=== PATIENT | male | born 1965 ===

== ENCOUNTER 2024-12-04 07:30 | Inpatient (IN) | payer OTHER ==
[~2024-12-04] VITALS: Ht 182.9 cm; Wt 84.7 kg
[2024-12-10] MEDS ORDERED: NO HOME MEDS (13:25)
[2024-12-11] VITALS (19 sets, daily range): BP systolic 126–167; BP diastolic 48–95; PULSE 76–101; RESP 11–21; TEMP 96.4–98.3; O2SAT 91–100
[2024-12-11] MEDS: clindamycin-Cleocin 900mg/D5W 50 ML IV ONE (05:30)
[2024-12-11] MEDS: tranexamic acid 1gm/0.7% sal. 100 ML IV ONE (05:30)
[2024-12-11] MEDS: famotidine 20mg tablet PO ONE (10:06)
[2024-12-11] MEDS: VANCOMYCIN/H2O 1.5g/300mL PB 300 ML IV ONE (10:07)
[2024-12-11] MEDS: ringers solution, lacted 1,000 ML IV SCH ×2 (10:07→19:31)
[2024-12-11] MEDS ORDERED: morphine 2 MG/ML inj. syringe IV PRN (10:45)
[2024-12-11] MEDS ORDERED: proCHLORperazine 10 MG/2 ml inj IV PRN (10:45)
[2024-12-11] MEDS ORDERED: labetalol 20mg/4ml (5mg/ml) syringe IV PRN (10:45)
[2024-12-11] MEDS ORDERED: morphine 4 MG/ML inj SYRINge IV PRN (10:45)
[2024-12-11] MEDS ORDERED: meperidine/PF 25mg/ml syringe IV PRN ×3 (10:45)
[2024-12-11] MEDS ORDERED: enalaprilat 1.25mg/ml 2ml vial IV PRN (10:45)
[2024-12-11] MEDS ORDERED: fentaNYL/PF 50MCG/1 ML 2ML syringe ONE (12:50)
[2024-12-11] MEDS ORDERED: MIDAZolam 1mg/ml 10ml vial ONE (12:50)
[2024-12-11] MEDS ORDERED: sevoflurane 250ml liquid IH ONE (12:52)
[2024-12-11] MEDS ORDERED: LIDOcaine 1%/PF 5ML 10 MG/ML VIAL ONE (13:20)
[2024-12-11] MEDS ORDERED: propofol inj 20 ML IV ONE (13:20)
[2024-12-11] MEDS ORDERED: BUPIVAcaine/PF 7.5mg/ml (0.75%) 10ml vial ONE (13:20)
[2024-12-11] MEDS ORDERED: vancomycin 1,000mg inj ONE (13:54)
[2024-12-11] MEDS ORDERED: albumin (Human) 5% 250ml 250 ML IV ONE (14:03)
--- NOTE | 2024-12-11 16:20 | ANESTHESIA RECORDS ---
Nerve Block Providers to ~ Diagnosis: Nerve Block requested by: VILLA MEZA MD Neuraxial/Peripheral Nerve Block requested for Post-operative analgesia by Physician above DIAGNOSIS: Post-operative pain. (Body Area) Shoulder: [ ] Arm: [ ] Hand: [ ] Hip: [ Right ] Knee: [ ] Ankle: [ ] Foot: [ ] Leg: [ ] Abdomen: [ ] Other: [ ] Post-operative pain expected to be/is inadequately managed by oral or IV medicines. Regional anesthetic expected to facilitate rehabilitation and/or discharge from facility. Other:[ ] Procedure Performed: Other: MARTÍN Block Time out Done?: Yes Time of Time out: 16:28 Procedure Details: PROCEDURE DETAILS: Risks, benefits and alternatives explained Informed consent obtained, and patient wishes to proceed Conscious sedation with indicated monitors Patient positioned, pertinent anatomy defined, sterile technique used Needle used: [ ] 3 1/8 inch Stimuplex Ultra 22ga [x ] 4 inch Stimuplex Ultra 20ga [ ] 6 inch Stimuplex Ultra 20ga [ ] 6 inch, Quikbloc over the needle catheter set 20ga [ ] 4 inch Quikbloc over the needle catheter set 20ga [ ]Other: [ ] Loss of twitch @ [ N/A ]mA [x ] Single Injection [ ] Catheter Ultrasound Guidance Used: [x ] Yes [ ] No Attempts:[ Once ] Medicines injected: [ ]Clonidine Amt:[ ] [x ]Dexamethasone Amt:[____2 mgs ] [ ]Ropivacaine Amt:[ ] [ X ]Bupivacaine Amt:[ 0.325% 20 ml ] [ ]Lidocaine Amt:[ ] [ ]Exparel 1.33%:[ ] [ ]Epinephrine Amt[ ] [ ]Other: [ ] Intermittent aspiration during local anesthetic administration No symptoms of intraneural or intravenous injection Patient tolerated procedure well Comments Right MRATÍN Block : Pericapsular Nerve group block Of Rt Hip: The block was done under spinal anesthesia. Pt is in supine position. Curvi Linear probe was used over inguinal ligament and moved superiorly until ramus of pubis was seen. 4 Stimuplex needle was used and inserted from lateral to medial in an acute angle until ramus was reached. 20 ml of local anesthetic solution was injected under the iliacus muscle. Spread of local anesthetic noticed between Ramus and Iliacus muscle . No Pain or discomfort during injection. LFCN is also blocked using 3 cc of local anesthetic below Ant Sup iliac spine SUSANA HOU MD December 11, 2024 16:20
[2024-12-11] MEDS ORDERED: ondansetron/PF 4mg/2ml inj ONE (16:29)
--- NOTE | 2024-12-11 16:29 | RADIOLOGY REPORT ---
CLINICAL INDICATION: PELVIS IN O.R. FOR RT. TOTAL HIP TECHNIQUE: DI PELVIS,LIMITED 1-2 VIEWS Comparison: DI PELVIS,LIMITED 1-2 VIEWS on DOS: 11/15/23, DI PELVIS,LIMITED 1-2 VIEWS on DOS: 11/15/23, DI PELVIS,LIMITED 1-2 VIEWS on DOS: 11/15/23 FINDINGS/IMPRESSION: : Intraoperative right hip arthroplasty.
[2024-12-11] MEDS ORDERED: dexamethasone sod phosphate 4mg/ml inj. ONE (16:39)
[2024-12-11] MEDS ORDERED: naloxone 0.4 mg/ml inj IV PRN (16:50)
[2024-12-11] MEDS ORDERED: magnesium hydroxide 30ml (MOM) UD suspension PO PRN (16:50)
[2024-12-11] MEDS ORDERED: bisacodyl 10mg suppository rectal RC PRN (16:50)
[2024-12-11] MEDS ORDERED: HYDROmorphone inj. 0.5 MG/0.5 ML DISP.SYRIN IV PRN (16:50)
[2024-12-11] MEDS ORDERED: acetaminophen 325mg tablet PO PRN (16:50)
--- NOTE | 2024-12-11 17:06 | OPERATIVE REPORT ---
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 This is a 59-year-old patient/inmate with a history of avascular necrosis in two hip replacement surgeries for his left hip. He has developed AVN of his right hip in his progressively symptomatic and is willing to proceed with a right total hip arthroplasty. He was informed of the indications risks benefits complications potential complications and limitations of the procedure. I obtained informed consent signed his right hip he is given prophylactic antibiotics taken to the operating room and placed in a supine position after a spinal anesthetic was administered patient was placed in a left lateral decubitus position and held this position with hip director operations system. Right hip and leg were prepped and draped in usual sterile orthopaedic fashion surgical time- out was taken per protocol. Standard anterior lateral approach of maría was completed with incision length pain approximately 7 in in length. Was the anterior 3rd of the abductor group was released off the greater trochanter the capsulotomy was performed to visualize the femoral head and neck. Patient had extensive osteophytes and deformity. This required in Situ osteotomy of the femoral neck using a napkin ring technique the head was now easily removed and found to be approximately a size 55 mm head. Exposure of the acetabulum with retractors both the anterior and posterior was accomplished as well as the use of a Charnley pins superiorly sequential reaming was accomplished in and I was able to get good punctate bleeding bone for positive paprika sign reaming to 55 mm. A cup was placed in the hip after a trial cup gave us excellent stability at 95% coverage. Definitive cup was used with a 56 mm cup with poor seen gross was placed into the hip impacted into place with a proximally 20 of anteversion and 45 of inclination a guide good stability with this fixation. Liner was placed inside the cup for a bipolar head. With proximal femur was brought into play by placing a figure 4 position using retractors the canal was established and lateralized with a starting Reamer and sequential broaching to a size 16 high offset plus three gave us yazidi of leg length and offset confirmed via intraoperative x-rays. The definitive implant was impacted into place without difficulty and reduced wi th a Biomet standard head , plus three neck, dual mobility 44 mm bearing with a G7 56 cup. Julieta high offset 16 taper lock stem was used. Copious pulsatile antibiotic irrigation antiseptic irrigation of the least 2 L each was used during the case. Hemostasis was completed with electrocautery. 1 g of vancomycin powder was placed throughout the wound prior and during closure iliotibial band was closed with 1. Vicryl in a [id number] interrupted fashion the abductor group was closed with 2. FiberWire in a running fashion achieving full closure. Subcuticular closure was accomplished with 2-0 Vicryl and the skin was closed with skin stanley and sealed with Dermabond skin glue and silver impregnated gauze island dressings were applied patient was placed in a knee immobilizer transferred to the [facility] [place] and [facility] recovery room in stable condition there were no apparent perioperative complications Surgeon: Villa Meza MD Photography Coordinator None Anesthesiologist: Juluis Trejo Type of Anesthesia: Spinal Findings: Severe degenerative joint disease secondary to has a necrosis of the femoral head Complications None Prosthetics\Implants used: See above dictation Estimated Blood Loss: 200 cc Specimen Removed: Femoral head and neck Description of Procedure: See above dictation Counts repoted as correct: Yes VILLA MEZA MD December 11, 2024 17:06
[2024-12-11] MEDS: LidoCAINE 2% Topical Jelly 11mL syringe (UROJET) TOP ONE (17:27)
--- NOTE | 2024-12-11 17:59 | RADIOLOGY REPORT ---
DI PELVIS,LIMITED 1-2 VIEWS 12/11/2024 at 5:07 p.m. HISTORY: Postop TECHNICAL DATA: Frontal view was obtained of the pelvis. COMPARISON: DI PELVIS,LIMITED 1-2 VIEWS on DOS: 12/11/24, DI PELVIS,LIMITED 1-2 VIEWS on DOS: 11/15/23, DI PELVIS,LIMITED 1-2 VIEWS on DOS: 11/15/23, DI PELVIS,LIMITED 1-2 VIEWS on DOS: 11/15/23 FINDINGS: There is no abnormality involving the bony pelvis. The sacroiliac joints appear normal. There is no a bnormality of the symphysis pubis. There is bilateral hip arthroplasty which appears to be anatomical position.. The proximal femurs demonstrate no abnormality. IMPRESSION: 1. Bilateral hip arthroplasty which appears to be anatomical position 2. No acute fracture or dislocation of the pelvis.
[2024-12-11] MEDS: oxyCODONE IR 5mg (immed. release) tablet PO PRN (18:54)
[2024-12-11] MEDS: HYDROmorphone 1 mg/ml syringe IV PRN (19:18)
[2024-12-11] MEDS: ondansetron/PF 4mg/2ml inj IV PRN (19:24)
[2024-12-11] MEDS: ROPIVAcaine inj 200 MG, epiNEPHrine inj 0.6 MG, morphine 10mg/ml inj. 5 MG in normal sa... IU ONE (20:20)
[2024-12-11] MEDS: tranexamic acid inj. 850 MG in normal saline 100ml IV soln 91.5 ML IV ONE (20:22)
[2024-12-11] MEDS: sennosides 8.6mg tablet PO SCH (21:02)
[2024-12-11] MEDS: gabapentin 300mg capsule PO SCH (21:03)
[2024-12-11] MEDS: acetaminophen 325mg tablet PO SCH (21:03)
[2024-12-11] MEDS: vancomycin/NS 1 GM ADD-VANTAGE 250 ML IV SCH (21:03)
[2024-12-11] MEDS: clindamycin 600mg/D5W 50ml 50 ML IV SCH (21:04)
--- NOTE | 2024-12-11 23:02 | CONSULTATION REPORT - RESIDENT ---
Consult Providers to CC Resident Creating Document: JOAQUIN COATS RES CC: ANNA MICHELE MD History of Present Illness Reason for Admit\Complaint: Right total hip arthroplasty History of Present Illness 59-year-old male, intermediate inmate, admitted for right total hip arthroplasty. He had avascular necrosis of the right hip with pain. Denies any history of steroids or NSAIDs intake. This afternoon he had undergone surgery by Dr. Davis. She received right hip candace capsular nerve block. Currently patient knows his pain as 8/10. He denies chest pain, cough, shortness of breath. He did have two episodes of vomitings and some nausea. In the postop. He had urinary retention and a Oquendo was inserted Allergies: Coded Allergies: Penicillins (Verified Allergy, Unknown, 07/28/23) hydroxyzine (Verified Allergy, Unknown, 07/28/23) Home Medications Home Medications Active Reported No Home Medications (Home Med List) Each Past Medical History Past Medical History History of avascular necrosis left hip, undergone total hip arthroplasty Past Surgical History Surgical History Comment Left hip arthroplasty in October 2023 Past Social History Social History Comment Lives in intermediate, history of smoking long time ago ROS ROS ROS Constitutional: No fever, dizziness, weakness. no change in appetite/weight HEENT: No blurring of the vision, No sore throat, epistaxis, tinnitus Cardiovascular: No chest pain/discomfort, palpitations, syncope. No pedal edema Respiratory: No sob, cough,, hemoptysis Gastrointestinal: No abdominal pain, nausea, vomiting. No diarrhea, constipation, melena. Genitourinary: No frquency, urgency, incontinence, nocturia. No dysuria, hematuria Musculoskeletal: Positive for right hip pain Endocrine: No fatigue, polydipsia, polyuria. No heat or cold intolerance Neurologic: No headache, vertigo. No weakness, numbness or tingling of extremities Psychiatric: No hallucinations/delusions, no anhedonia, no suicidal ideation\ Hematologic: No bleeding or bruises Reviewed in full. All negative except for pertinent positives in HPI Exam Vitals: Vital Signs Date Time Temp Pulse Resp B/P (MAP) Pulse Ox O2 Delivery O2 Flow Rate FiO2 12/11/24 19:54 16 12/11/24 17:40 97 142/89 (106) 99 Room Air 0.0 5/14/25 16:48 97.5 General: General: Adult male, AAO x4, not in apparent distress, in police restraints, with a Security Technician by his side Head: Normocephalic with an atraumatic Eyes: Pupils- 3mm, reacting to light, conjunctiva- anicteric Nose and throat: No polyps, septum- normal, no mucosal ulcers Neck: Supple, no lymphadenopathy, no carotid bruit Respiratory: No use of accessory muscles of respiration, Bilateral normal vesiscular breath sounds heard. No wheeze, rhochi or creps Cardiac: S1-S2 heard, rythm regular, no gallop/murmur Abdomen: non distended, no tenderness, no organomegaly, bowel sounds- heard Extremities: no clubbing, no pedal edema, no deformities, peripheral pulses- 2+ Skin: Right hip-bandaged warm and dry, no rash, no purpura Neuro: No focal deficit, gross cranial nerve exam- normal Additional Plan 59-year-old male, intermediate inmate, with history of left hip arthroplasty, right hip avascular necrosis, had undergone right hip arthroplasty on 12/11/[address] Davis Right hip arthroplasty -pain management with, Celebrex 200 mg b.i.d., gabapentin 300 mg t.i.d. oxy IR 10 mg q.4h for severe pain, Oxy IR 5 mg p.r.n. for moderate pain, Dilaudid 0.5 mg p.r.n. for moderate pain, 1 mg p.r.n. for severe pain -he is also on IV clindamycin 600 mg q.6 Nausea/vomitings -IV Zofran 8 mg q.6 p.r.n. Plan reviewed with bedside team. Patient seen through remote audiovisual assessment through HIPAA compliant setup. All labs, flowsheets, and images reviewed Cumulative nonprocedural care time spent in directed patient care = 30 min Date of Service: December 11, 2024 Billing Provider: SHAYLEE LINDSAY MD, HARIVARSHA, RES December 11, 2024 23:02 SHAYLEE LINDSAY MD December 12, 2024 07:18
[2024-12-12] MEDS: potassium Cl 20mEq in NS 1,000 ML IV SCH (00:50)
[2024-12-12 02:00] VITALS: BP 134/79; PULSE 97; RESP 18; TEMP 97.5; O2SAT 92
[2024-12-12] MEDS: metoclopramide 5 mg/ml inj IV ONE (05:13)
[2024-12-12 05:54] LABS: BASOPHILS % (AUTO) 0.3 % (0-1); EOSINOPHILS % (AUTO) 0 % (0-6); HEMATOCRIT 40.2 % (42.0-52.0); HEMOGLOBIN 13.8 g/dl (14.0-17.9); LYMPHOCYTES # (AUTO) 1.2 X10'3 (1.1-4.8); LYMPHOCYTES % (AUTO) 11.3 % (21-51); MEAN CORPUSCULAR HEMOGLOBIN 30.4 PG (27.0-31.0); MEAN CORPUSCULAR HGB CONC 34.3 g/dL (33.0-36.5); MEAN CORPUSCULAR VOLUME 88.6 FL (78-98); MONOCYTES % (AUTO) 9.4 % (2-12); NEUTROPHILS # (AUTO) 8.4 X10'3 (1.8-7.7); PLATELET COUNT 335 X10'3 (140-440); RED BLOOD COUNT 4.53 X10'6 (4.70-6.10); RED CELL DISTRIBUTION WIDTH 14.5 % (11.5-14.5); WHITE BLOOD COUNT 10.6 X10'3 (4.5-11.0)
[2024-12-12 06:00] VITALS: BP 129/80; PULSE 106; RESP 18; TEMP 97.6; O2SAT 98
[2024-12-12 06:12] LABS: ALANINE AMINOTRANSFERASE 29 U/L (12-78); ALBUMIN 3.3 G/DL (3.4-5.0); ALBUMIN/GLOBULIN RATIO 1.1 (1.1-1.5); ALKALINE PHOSPHATASE 104 IU/L (46-116); ANION GAP 8 (8-16); ASPARTATE AMINO TRANSFERASE 20 U/L (10-37); BILIRUBIN,TOTAL 0.9 MG/DL (0.1-1.0); BLOOD UREA NITROGEN 6 MG/DL (7-18); CALCIUM 8.4 MG/DL (8.5-10.1); CHLORIDE 104 MMOL/L (99-107); CREATININE 0.75 MG/DL (0.60-1.10); GLUCOSE 166 MG/DL (70-104); POTASSIUM 3.6 MMOL/L (3.5-5.1); SODIUM 138 MMOL/L (135-145); TOTAL CARBON DIOXIDE 26.1 MMOL/L (24-32); TOTAL PROTEIN 6.2 G/DL (6.4-8.2); eCRCL 116 ML/MIN; eGFR > 90 ML/MIN
[2024-12-12] MEDS: ondansetron/PF 4mg/2ml inj IV PRN (07:59)
[2024-12-12] MEDS: enoxaparin 40mg/0.4ml syringe SQ SCH (07:59)
[2024-12-12 08:00] VITALS: RESP 18; O2SAT 98
[2024-12-12 10:00] VITALS: BP 126/82; PULSE 87; RESP 18; TEMP 97.8; O2SAT 100
[2024-12-12] MEDS: oxyCODONE IR 5mg (immed. release) tablet PO PRN (15:47)
--- NOTE | 2024-12-12 17:12 | PROGRESS NOTE ---
Progress Note Dictate Providers to CC ~ Progress Note: Postop day 1. Status post total hip arthroplasty. Subjective: Patient has had his persistent significant pain postoperatively that his learning his ability to ambulate and perform physical therapy test to reasonably transfer him back to his facility. Objective: Wound remained stable neurological and vascular exam is intact to his right lower extremity there is no signs or symptoms of compartment syndrome good distal pulses and capillary refill. Assessment: Postop total hip arthroplasty with poor pain management. Plan: Continue with physical therapy appreciate hospitalist assistance in pain management and medication anticipate discharge within the next day or two back to his facility and [facility]. Antibiotic Ordered?: Yes Objective Vitals Vital Signs Date Time Temp Pulse Resp B/P (MAP) Pulse Ox O2 Delivery O2 Flow Rate FiO2 12/13/24 05:45 16 12/12/24 22:00 98.9 110 149/89 (109) 95 Room Air 12/11/24 17:40 0.0 Lab Results: 12/13/24 0818 12/12/24 0516 VILLA MEZA MD December 12, 2024 17:12
[2024-12-12 18:00] VITALS: BP 133/80; PULSE 118; RESP 16; TEMP 100.2; O2SAT 96
--- NOTE | 2024-12-12 19:21 | PROGRESS NOTE ---
Daily Progress Note Providers to CC ~ Antibiotic Timeout Antibiotic Ordered?: No Subjective Possibly related to use of Dilaudid patient has been having severe nausea and uncontrolled pain Objective Vital Signs Date Time Temp Pulse Resp B/P (MAP) Pulse Ox O2 Delivery O2 Flow Rate FiO2 12/12/24 15:47 18 12/12/24 10:00 97.8 87 126/82 (97) 100 Room Air 12/11/24 17:40 0.0 Result Diagram: 12/12/24 0516 12/12/24 0516 In bed in mild distress due to the persistent nausea HEENT normal oral mucosa no JVD Lungs with normal bilateral entry no crackles no wheezing Heart normal rate and rhythm S1-S2 Abdomen is soft nontender bowel sounds are present Extremities no edema plus two pulses Awake and alert Problem\Assessment\Plan Patient is status post total hip arthroplasty with Dr. Davis; pain not well controlled and causing him severe nausea due to pain meds; trying to get the meds right for him to be able to discharge back retirement; on gabapentin, morphine DVT prophylaxis with Lovenox Date of Service: December 12, 2024 Billing Provider: RUBA CHOU MD Common Visit Codes: [id number] INP/OBS CARE(HIGH) RUBA CHOU MD December 12, 2024 19:21
[2024-12-12 20:46] LABS: BILIRUBIN,URINE NEGATIVE (Neg); CLARITY,URINE CLEAR (Clear); COLOR,URINE YELLOW (Yellow); GLUCOSE, URINE NEGATIVE (Neg); KETONES,URINE TRACE mg/dl (Neg); LEUKOCYTE ESTERASE ,URINE NEGATIVE (Neg); NITRITES, URINE NEGATIVE (Neg); OCCULT BLOOD,URINE TRACE-INTACT (Neg); PROTEIN,URINE NEGATIVE (Neg); UROBILINOGEN,URINE 0.2 E.U/dL (0.2-1.0)
[2024-12-12 20:50] LABS: UA COLLECTION TYPE NON-SPECIFIED
[2024-12-12 20:54] LABS: SQUAMOUS EPITHELIAL CELL,UR MODERATE /LPF (FEW)
[2024-12-12 20:55] LABS: MUCUS STRANDS FEW /LPF (Neg)
[2024-12-12 21:05] LABS: BACTERIA,URINE NONE SEEN /HPF (Neg); WBC,URINE 0-4 /HPF (0-4)
[2024-12-12] MEDS: celeCOXIB 100mg capsule PO SCH (21:50)
[2024-12-12 22:00] VITALS: BP 149/89; PULSE 110; RESP 16; TEMP 98.9; O2SAT 95
[2024-12-12] MEDS: Melatonin 3mg tablet PO ONE (23:14)
[2024-12-13 06:00] VITALS: BP 126/80; PULSE 112; RESP 18; TEMP 98; O2SAT 98
[2024-12-13 08:59] LABS: BASOPHILS # (AUTO) 0.1 X10'3 (0-0.2); BASOPHILS % (AUTO) 0.6 % (0-1); EOSINOPHILS % (AUTO) 0.2 % (0-6); HEMATOCRIT 39.9 % (42.0-52.0); HEMOGLOBIN 13.6 g/dl (14.0-17.9); LYMPHOCYTES # (AUTO) 2.1 X10'3 (1.1-4.8); LYMPHOCYTES % (AUTO) 16.9 % (21-51); MEAN CORPUSCULAR HEMOGLOBIN 30.1 PG (27.0-31.0); MEAN CORPUSCULAR HGB CONC 34.1 g/dL (33.0-36.5); MEAN CORPUSCULAR VOLUME 88.2 FL (78-98); MONOCYTES # (AUTO) 1.1 X10'3 (0-0.9); MONOCYTES % (AUTO) 9.3 % (2-12); NEUTROPHILS # (AUTO) 8.9 X10'3 (1.8-7.7); PLATELET COUNT 307 X10'3 (140-440); RED BLOOD COUNT 4.53 X10'6 (4.70-6.10); RED CELL DISTRIBUTION WIDTH 14.6 % (11.5-14.5); WHITE BLOOD COUNT 12.2 X10'3 (4.5-11.0)
[2024-12-13 10:00] VITALS: BP 136/90; PULSE 95; RESP 18; TEMP 99; O2SAT 99
[2024-12-13] MEDS ORDERED: LidoCAINE 2% Topical Jelly 11mL syringe (UROJET) TOP PRN (10:25)
[2024-12-13 11:08] VITALS: RESP 18
--- NOTE | 2024-12-14 08:17 | DISCHARGE SUMMARY ---
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 Davis Urinary retention likely medication induced Operations\Procedures: Right total hip arthroplasty Consultants: Dr. Davis Complications: None Condition on DC: Stable Discharge Summary: This is a 59 years old male present inmate who was admitted for right total hip arthroplasty due to avascular necrosis of the right hip; patient underwent surgery on December [address] Davis; and next day postop patient had severe pain and severe nausea due to the pain medication; eventually patient's pain got co ntrolled with pills nausea has resolved; patient developed urinary retention and will be discharged with a Oquendo catheter; patient is stable condition is discharged back to pen[facility] Patient was recommended for Flomax 0.4 mg p.o. daily and pain medication per penitentiary doctor On the day of discharge white count 12.2 H and H 13.6/40 with 307 platelets; sodium 138 potassium 3.6 CO2 26 BUN six and creatinine 0.7 In the physical examination temperature 99 heart rate 95 breathing 18 blood pressure 136/999% on room air HEENT normal oral mucosa no JVD lungs with normal bilateral entry no crackles no wheezing heart normal rate and rhythm S1-S2 no murmurs abdomen is soft nontender bowel sounds are present extremities no edema plus two pulses she is awake and alert *Problems/Diagnosis: (1) S/P total left hip arthroplasty Total Time Spent on D/C: > 30 Minutes Date of Service: December 13, 2024 Billing Provider: RUBA CHOU MD Common Visit Codes: [id number] DISCH DAY >30min RUBA CHOU MD December 14, 2024 08:17
== END 2024-12-13 15:40 | disposition home or self-care (01) | DRG 470 ==
LOC: PAS IN 12-11 08:57 → EEVIPCON 12-11 12:30 → ORTHO 4S 12-11 17:50
PROVIDERS: ADMIT Orthopaedic Surgery; ATTEND Orthopaedic Surgery
PROC: 3E0T3BZ Introduction of Anesthetic Agent into Peripheral Nerves and Plexi, Percutaneous Approach (ICD-10-PCS; 2024-12-11)
PROC: 3E0T33Z Introduction of Anti-inflammatory into Peripheral Nerves and Plexi, Percutaneous Approach (ICD-10-PCS; 2024-12-11)
PROC: 0SR90JA Replacement of Right Hip Joint with Synthetic Substitute, Uncemented, Open Approach (ICD-10-PCS; principal; 2024-12-11 12:52)
DX: M16.11 Unilateral primary osteoarthritis, right hip (principal); R33.9 Retention of urine, unspecified; T50.995A Adverse effect of other drugs, medicaments and biological substances, initial encounter; Y92.89 Other specified places as the place of occurrence of the external cause; Z88.0 Allergy status to penicillin; Z88.8 Allergy status to other drugs, medicaments and biological substances
CPT/HCPCS: Z7506; Z7508; 36415; 72170; 80053; 81001; 82948; 85025; 86885; 86900; 86901; 87081; 97110; 97116; 97162; 97530; A4215; A4314; A4618; A6253; A6258; A6449; A7000; C1758; C1776; G0378; J1100; J1171; J1650; J2250; J2405; J2704; J2765; J3010; J3370; J3372; J3480; J3490; J7120; P9045